=== PATIENT | male | born 1990 | race Caucasian/White ===

== ENCOUNTER 2020-05-23 07:27 | Observation (INO) | payer BC ==
[~2020-05-23] VITALS: Ht 185.4 cm; Wt 79.4 kg
[2020-05-23 08:29] LABS: HEMOGLOBIN 16.7 gm/dl (14.0-17.5); RED BLOOD COUNT 5.26 M/UL (4.20-5.50); WHITE BLOOD COUNT 13.2 K/UL (4.5-11.0)
[2020-05-23 08:42] LABS: BUN/CREATININE RATIO 12 (0-10)
[2020-05-24] MEDS ORDERED: AUGMENTIN 875-1 EACH PO (10:42)
[2020-05-24] MEDS ORDERED: HYDROCODON-ACE1 EAC2 PO (10:42)
[2020-05-24] MEDS ORDERED: DULCOLAX STOOL100 MG PO (10:42)
== END 2020-05-24 12:27 | disposition home or self-care (01) ==
LOC: ER1 07:27 → CDU 11:06 → M/S 11:06
PROVIDERS: Student in an Organized Health Care Education/Training Program; ADMIT Surgery
PROC: 0DTJ4ZZ Resection of Appendix, Percutaneous Endoscopic Approach (ICD-10-PCS; principal; 2020-05-23 14:24)
DX: K35.30 Acute appendicitis with localized peritonitis, without perforation or gangrene (principal); F17.220 Nicotine dependence, chewing tobacco, uncomplicated; Z20.822 Contact with and (suspected) exposure to COVID-19
CPT/HCPCS: 71045; 80053; 81001; 83605; 83690; 85025; 87040; 96374; 96375; 96376; 99285; G0378; J1100; J1885; J2250; J2405; J2543; J2704; J2710; J3010; J3480; J7120; Q9967; U0002